=== PATIENT | female | born 1960 | race Caucasian/White ===

== ENCOUNTER → 2016-12-19 | Outpatient (CLI) | payer OTHER ==
[~2016-12-19] MED LIST: CELEXA DPS20 MG PO; CENTRUM SILVER1 EAC1 PO; COLACE-DPS100 MG PO; MOTRIN-DPS400 MG PO; PERCOCET 5-3251 EACH PO; VITAMIN D1000 UNI1 PO; [UNRECOGNIZED DRUG - OTHER] PO
== END | disposition home or self-care (01) ==
LOC: RAD.S 15:53
DX: Z12.31 Encounter for screening mammogram for malignant neoplasm of breast (principal)